=== PATIENT | male | born 1960 | race Caucasian/White ===

== ENCOUNTER 2019-03-25 13:18 | Emergency (ER) | payer BC, OTHER ==
[2019-03-25 13:26] VITALS: BP 158/98; PULSE 74; TEMP 98; BMI 26.6
[2019-03-25] MEDS ORDERED: ACETAMINOPHEN 500 MG TABLET (FP) PO ONE (15:14)
--- NOTE | 2019-03-25 15:19 | PDOC ---
History of Present Illness - General Chief Complaint: Injury Stated Complaint: RT. ANKLE PAIN Time Seen by Provider: 03/25/19 14:49 - History of Present Illness Initial Comments: 03/25/19 15:17 59-year-old male with a past medical history of Crohn's presents for evaluation of right ankle pain after describing inversion type injury while golfing and walking down a hill. He points to the lateral aspect of the right ankle as the area of his discomfort Past History - Past Medical History Allergies/Adverse Reactions: Allergies Allergy/AdvReac Type Severity Reaction Status Date / Time azathioprine AdvReac Mild pain Verified 03/25/19 13:26 Home Medications: Ambulatory Orders Folic Acid - 1 mg PO DAILY 05/28/16 Iron,Carb/Vit C/Vit B12/Folic [Iron 100 Plus Tablet] 1 each PO TID 05/28/16 Warren-3 Fatty Acids [Warren-3] 1,000 mg PO DAILY 05/28/16 Bacitracin - [Bacitracin Topical Ointment -] 1 applic TP BID tube 05/31/16 Prednisone 40 mg PO DAILY #120 tablet 05/31/16 metroNIDAZOLE [Flagyl -] 250 mg PO TID #42 tablet 05/31/16 Anemia: No Asthma: No Cancer: No Cardiac Disorders: No CVA: No COPD: No CHF: No DVT: No Dementia: No Diabetes: No Dialysis: No GI Disorders: Yes (Crohn's, GERD) Disorders: No HTN: No Hypercholesterolemia: No Kidney Stones: No Liver Disease: No Psychiatric Problems: No Seizures: No Thyroid Disease: No Lung CA: No - Surgical History Appendectomy: Yes GI Surgery: Yes (Colon resect) - Psycho Social/Smoking Cessation Hx Smoking History: Never smoked Hx Alcohol Use: No Drug/Substance Use Hx: No Substance Use Type: None Hx Substance Use Treatment: No Review of Systems - Review of Systems Musculoskeletal: Yes: Joint Pain *Physical Exam - Vital Signs Last Vital Signs Temp Pulse Resp BP Pulse Ox 98 F 74 18 158/98 100 03/25/19 13:24 03/25/19 13:24 03/25/19 13:24 03/25/19 13:24 03/25/19 13:24 - Physical Exam Comments: 03/25/19 15:18 Right ankle skin color and temperature normal range of motion is slightly limited. There is no tenderness about the proximal fibula or along its distal course. No tenderness about the medial lateral malleolus base of the fifth metatarsal or navicular. Mild tenderness over the ATFL without instability no gross sensorimotor deficits neurovascular intact. ED Treatment Course - RADIOLOGY Radiology Studies Ordered: Category Date Time Status ANKLE-RIGHT [RAD] Stat Radiology 03/25/19 14:56 Taken Medical Decision Making - Medical Decision Making 03/25/19 15:18 X-rays of the right ankle show no evidence of fracture trauma or destructive process. This is a right ankle sprain weight-bear as tolerated with Aircast and crutches follow-up with Ortho Discharge - Discharge Information Problems reviewed: Yes Clinical Impression/Diagnosis: Ankle sprain Condition: Stable Disposition: HOME - Admission No - Follow up/Referral Referrals: Lowell Knight MD [Staff Physician] - - Patient Discharge Instructions Additional Instructions: You may weight-bear as tolerated with use of crutches in the Aircast Tylenol as directed for pain. Return to the emergency room for worsening symptoms. And without fail please follow-up with orthopedic surgery in 1 to 2 days for further evaluation and treatment options. - Post Discharge Activity
[2019-03-25] MEDS ORDERED: ACETAMINOPHEN 500 MG TABLET (FP) ONE (15:30)
== END 2019-03-25 15:42 | disposition home or self-care (01) ==
LOC: JERFT 13:18
PROC: 2W3QX1Z Immobilization of Right Lower Leg using Splint (ICD-10-PCS; principal; 2019-03-25)
DX: S93.401A Sprain of unspecified ligament of right ankle, initial encounter (principal); X50.9XXA Other and unspecified overexertion or strenuous movements or postures, initial encounter; Y93.01 Activity, walking, marching and hiking; Y92.39 Other specified sports and athletic area as the place of occurrence of the external cause; Y93.53 Activity, golf; Y99.8 Other external cause status; Z88.8 Allergy status to other drugs, medicaments and biological substances
CPT/HCPCS: 73610-TC-RT-FY; 99282-25

== ENCOUNTER 2021-04-15 05:59 | Inpatient (IN) | payer BC, OTHER ==
[2021-04-12 16:40] VITALS: BMI 28.3
[2021-04-15] MEDS ORDERED: BUPIVACAINE LIPOSOME/PF (EXPAREL) 266 MG/20 ML VIAL ONE (06:53)
[2021-04-15] MEDS ORDERED: MIDAZOLAM HCL 2 MG/2 ML SINGLE DOSE VIAL ONE (06:53)
[2021-04-15] MEDS ORDERED: BUPIVACAINE HCL/PF 0.5% (5 MG/ML) 30 ML VIAL IJ ONE (06:53)
[2021-04-15] MEDS ORDERED: PROPOFOL 20 ML ONE ×2 (07:11→09:35)
[2021-04-15] MEDS ORDERED: LIDOCAINE HCL/PF 2% SDV 5ML VIAL ONE (07:11)
[2021-04-15] MEDS ORDERED: ONDANSETRON 4 MG/2 ML VIAL ONE ×2 (07:11→11:45)
[2021-04-15] MEDS ORDERED: DEXAMETHASONE SOD PHOSPHATE 4 MG/1 ML VIAL ONE (07:11)
[2021-04-15] MEDS ORDERED: SUCCINYLCHOLINE CHLORIDE 200 MG/10 ML SYRINGE ONE (07:12)
[2021-04-15] MEDS ORDERED: ROCURONIUM BROMIDE 50 MG/5 ML SYRINGE ONE (07:12)
[2021-04-15] MEDS ORDERED: TRANEXAMIC ACID 1000 MG/10 ML VIAL ONE ×3 (07:16→10:02)
[2021-04-15] MEDS ORDERED: VANCOMYCIN 1,000 MG VIAL (RESTRICTED TO ID ONLY) ONE ×2 (07:16→08:01)
[2021-04-15] MEDS ORDERED: ceFAZolin SODIUM 1 GM VIAL ONE ×2 (08:01→17:06)
[2021-04-15] MEDS ORDERED: EPINEPHrine 1:1,000 1 MG/1 ML - 30ML VIAL (INJECTION) ONE (08:06)
[2021-04-15] MEDS ORDERED: EPINEPHrine/PF 1 MG/1 ML (1:1,000) AMPULE ONE ×2 (08:55→09:20)
[2021-04-15] MEDS ORDERED: NEOSTIGMINE METHYLSULFATE 0.5 MG/ML - 10 ML MDV ONE (09:50)
[2021-04-15] MEDS ORDERED: GLYCOPYRROLATE 0.2 MG/1 ML VIAL ONE (09:50)
[2021-04-15] MEDS ORDERED: ONDANSETRON 4 MG/2 ML VIAL IVPUSH PRN ×2 (10:17→11:27)
[2021-04-15] MEDS ORDERED: ACETAMINOPHEN 1000 MG/100 ML VIAL IVPB ONE ×2 (10:17→11:40)
[2021-04-15] MEDS ORDERED: oxyCODONE HCL 5 MG TABLET PO PRN (10:17)
[2021-04-15] MEDS ORDERED: KETOROLAC TROMETHAMINE 30 MG/1 ML VIAL IVPUSH PRN (10:20)
[2021-04-15] MEDS ORDERED: LACTATED RINGERS SOLUTION 1,000 ML IV SCH ×2 (10:30→11:30)
[2021-04-15] MEDS ORDERED: MAGNESIUM HYDROX 2400MG/30ML ORAL SUSPENSION 30 ML CUP PO PRN (11:27)
[2021-04-15] MEDS ORDERED: MAG HYDROX/AL HYDROX/SIMETH 30 ML UNIT-DOSE CUP PO PRN (11:27)
[2021-04-15] MEDS ORDERED: ACETAMINOPHEN INJECTION 100 ML IVPB ONE (11:37)
[2021-04-15] MEDS: oxyCODONE HCL 5 MG TABLET PO PRN ×2 (14:15→21:55)
[2021-04-15] MEDS ORDERED: DEXTROSE 5%-WATER - 50 ML IVPB ONE (17:06)
[2021-04-15] MEDS: ACETAMINOPHEN 500 MG TABLET (FP) PO SCH (17:16)
[2021-04-15] MEDS: CEFAZOLIN 2 GM in DEXTROSE 5%-WATER - 50 ML IVPB SCH (17:17)
[2021-04-15] MEDS ORDERED: VANCOMYCIN 1 GM in D5W (PRE-DOCKED) 1,000 MG/250 ML IVPB ONE (19:45)
[2021-04-15] MEDS: SENNOSIDES/DOCUSATE COMBO (SENNA PLUS) TABLET (UD) PO SCH (21:55)
[2021-04-15] MEDS: GABAPENTIN 300 MG CAPSULE PO SCH (21:55)
[2021-04-16] MEDS ORDERED: ceFAZolin SODIUM 1 GM VIAL ONE (00:16)
[2021-04-16] MEDS ORDERED: DEXTROSE 5%-WATER - 50 ML IVPB ONE (00:16)
[2021-04-16] MEDS: CEFAZOLIN 2 GM in DEXTROSE 5%-WATER - 50 ML IVPB SCH (00:19)
[2021-04-16] MEDS: ACETAMINOPHEN 500 MG TABLET (FP) PO SCH ×3 (00:20→12:00)
[2021-04-16] MEDS: oxyCODONE HCL 5 MG TABLET PO PRN (06:28)
[2021-04-16 08:56] LABS: HEMATOCRIT 36.6 % (35.4-49); HEMOGLOBIN 12.3 GM/dl (11.7-16.9); MCH 32.1 pg (25.7-33.7); MCHC 33.6 g/dl (32.0-35.9); MEAN CELL VOLUME 95.5 fl (80-96); MEAN PLT VOLUME 9.5 fl (7.5-11.1); PLATELET COUNT 200 10^3/uL (134-434); RBC 3.83 M/mm3 (4.00-5.60); WHITE BLOOD COUNT 8.4 K/mm3 (4.0-10.8)
[2021-04-16 08:58] LABS: CREATININE 1.2 mg/dl (0.55-1.3)
[2021-04-16 08:59] LABS: CALCIUM 8.8 mg/dl (8.5-10)
[2021-04-16] MEDS ORDERED: ASPIRIN 325 MG TABLET PO SCH (10:00)
[2021-04-16] MEDS ORDERED: amLODIPine BESYLATE 5 MG TABLET (FP) PO SCH (10:00)
[2021-04-16] MEDS ORDERED: MULTIVITAMINS (DAILY MVI) TABLET (FP) PO SCH (10:00)
[2021-04-16] MEDS ORDERED: PANTOPRAZOLE 40 MG TABLET PO SCH (10:00)
[2021-04-16] MEDS: GABAPENTIN 300 MG CAPSULE PO SCH (10:03)
[2021-04-16] MEDS: SENNOSIDES/DOCUSATE COMBO (SENNA PLUS) TABLET (UD) PO SCH (10:04)
[2021-05-04 12:49] VITALS: BP 122/83; PULSE 78; TEMP 98.6
== END 2021-04-16 14:00 | disposition home or self-care (01) | DRG 483 ==
LOC: FM/S 05:59
PROVIDERS: ADMIT Orthopaedic Surgery; ATTEND Nurse Practitioner Family
PROC: 0LS40ZZ Reposition Left Upper Arm Tendon, Open Approach (ICD-10-PCS; 2021-04-15)
PROC: 0RRK0JZ Replacement of Left Shoulder Joint with Synthetic Substitute, Open Approach (ICD-10-PCS; principal; 2021-04-15 08:27)
DX: M19.012 Primary osteoarthritis, left shoulder (principal); K50.90 Crohn's disease, unspecified, without complications; M75.22 Bicipital tendinitis, left shoulder; I10 Essential (primary) hypertension; G43.909 Migraine, unspecified, not intractable, without status migrainosus; K21.9 Gastro-esophageal reflux disease without esophagitis
CPT/HCPCS: 36415; 73030-TC-LT-FY; 80048; 85027; 88304-TC; 88311-TC; 94760; 97116-GP; 97162-GP; J0131

== ENCOUNTER 2023-12-22 10:45 | Day surgery (SDC) | payer BC, OTHER ==
[2023-12-22] MEDS: SODIUM CHLORIDE 250 ML IV SCH (12:35)
[2023-12-22] MEDS: ACETAMINOPHEN 500 MG TABLET (FP) PO PRN (13:53)
[2023-12-22] MEDS: VEDOLIZUMAB 300 MG in SODIUM CHLORIDE 250 ML IVPB SCH (14:23)
[2023-12-22 15:28] VITALS: BP 128/80; PULSE 80; RESP 18; TEMP 98.6
== END 2023-12-22 15:28 | disposition home or self-care (01) ==
LOC: FINFUSION 10:45 → FM/S 10:46 → FINFUSION 15:28
PROVIDERS: ATTEND Internal Medicine Gastroenterology
PROC: 3E033GC Introduction of Other Therapeutic Substance into Peripheral Vein, Percutaneous Approach (ICD-10-PCS; principal; 2023-12-22)
PROC: 3E0337Z Introduction of Electrolytic and Water Balance Substance into Peripheral Vein, Percutaneous Approach (ICD-10-PCS; 2023-12-22)
DX: K50.90 Crohn's disease, unspecified, without complications (principal)
CPT/HCPCS: 96361; 96365; J3380